=== PATIENT | female | born 1960 ===

== ENCOUNTER → 2018-07-29 | Outpatient (REF) ==
--- NOTE | 2018-07-29 14:49 | Diagnostic Imaging Report ---
INDICATION: Fall, prior history of wrist fracture. TIME OF EXAMINATION: 2:15 PM. COMPARISON: Correlation is made with prior wrist radiographs from 11/16/2017. FINDINGS: Three views of the right wrist demonstrate a volar plate and numerous screws transfixing the distal radius. There is a lucency through the distal radius which most likely represents a residual fracture line from incomplete healing of the prior fracture. The hardware is intact without fracture or loosening. The distal ulna is intact. The carpus and metacarpals are intact. IMPRESSION: Post operative changes of ORIF involving the distal radius fracture. The fracture line does remain partly visible dorsally. No other significant abnormality is seen. Dictated by: Dictated on workstation # [id number]
== END | disposition home or self-care (01) ==
LOC: OCC 13:40
PROVIDERS: ATTEND Nurse Practitioner Family
CPT/HCPCS: 73110